=== PATIENT | male | born 1990 | race Caucasian/White ===

== ENCOUNTER 2018-12-23 03:16 | Emergency (ER) | payer OTHER, SELFPAY ==
[2018-12-23 03:20] VITALS: BP 148/97; PULSE 104; RESP 18; TEMP 37.2; O2SAT 98; BMI 25.1
--- NOTE | 2018-12-23 03:28 | ED.ABDPAIN ---
HPI - Abdominal Pain General Chief Complaint: Abdominal Pain Stated Complaint: abdominal pain, fever Time Seen by Provider: 12/23/18 03:28 Source: patient Mode of arrival: ambulatory Limitations: no limitations History of Present Illness HPI narrative: Patient is a 28-year-old male here for evaluation of epigastric pain. Patient states the symptoms started the day before yesterday. Describes it as sharp pain. No nausea or vomiting. Large amounts of diarrhea when the symptoms started. Was seen at a walk-in clinic yesterday where he was given a ?GI cocktail? which she states did nothing for his symptoms and was told to return the next day for a re-evaluation. He states that he had labs drawn at the time. He was told that everything was ?okay? with regard to the labs. He was instructed to come to the emergency department prior to this follow-up visit if his symptoms worsen or if he develops fevers. He states that he has felt fevers since then. Related Data Previous Rx's Medication Instructions Recorded sucralfate [Carafate] 10 ml PO QID 7 Days #280 ml 12/23/18 Allergies Allergy/AdvReac Type Severity Reaction Status Date / Time Sulfa (Sulfonamide Allergy Rash Verified 12/23/18 03:31 Antibiotics) Review of Systems Constitutional Reports fever(s) and Denies headache(s) ENT Ears, Nose, Mouth, and Throat: Denies headache(s) Cardiovascular Denies chest pain and Denies dyspnea Respiratory Denies dyspnea Gastrointestinal Gastrointestinal: Reports abdominal pain, Denies constipation and Reports diarrhea Genitourinary Denies dysuria Musculoskeletal Denies myalgias and Denies arthralgias Integumentary/Breasts Denies rash Neurologic Denies headache(s) Hematologic/Lymphatic Denies easy bleeding and Denies easy bruising [facility] Medical History Patient denies medical problems (Acute) Social History lives independently: Yes Social History lives independently: Yes Exam Initial Vital Signs Initial Vital Signs: Vital Signs Temperature 98.9 F 12/23/18 03:20 Pulse Rate 104 H 12/23/18 03:20 Respiratory Rate 18 12/23/18 03:20 Blood Pressure 148/97 H 12/23/18 03:20 Pulse Oximetry 98 12/23/18 03:20 Const General: cooperative, well developed, well groomed and No acute distress Orientation: alert, awake and oriented x3 HENMT Head: normal to inspection and normocephalic Resp Effort & Inspection: normal respiratory effort Auscultation: clear to auscultation bilaterally Cardio Rate: tachycardic Rhythm: regular rhythm GI Inspection: non-distended Palpation: soft, No firm and tender (Epigastric and right upper quadrant) Back/Spine/Pelvis Back: No CVA tenderness Skin Lesions: no lesions Rashes: no rashes Neuro General: alert, awake and oriented x3 Cognition: normal cognition Speech: speech normal Motor: muscle tone normal throughout Sensory Exam: no sensory deficits noted Extrem General: normal to inspection and capillary refill normal Psych Appearance: grossly normal and well kempt Course Orders Ordered: ED Orders 12/23/18 03:33 US abdomen limited Stat 12/23/18 03:40 Complete Blood Count AUTO DIFF Stat Comprehensive Metabolic Panel Stat Lipase Stat 12/23/18 04:51 CT abdomen pelvis w con Stat Discontinued Medications Sodium Chloride (Normal Saline 0.9%) 1,000 mls @ 1,000 mls/hr IV BOLUS ONE Stop: 12/23/18 05:50 Last Admin: 12/23/18 05:09 Dose: 1,000 mls/hr Vital Signs - 8 hr 12/23/18 03:20 12/23/18 04:30 12/23/18 05:11 Temperature 98.9 F Pulse Rate 104 H 89 74 Respiratory Rate 18 14 14 Blood Pressure 148/97 H Blood Pressure [Left Arm] 110/60 149/82 H Pulse Oximetry 98 99 100 MDM - Abdominal Pain Lab Data Attestation: I reviewed the patient's lab results. Result diagrams: 12/23/18 03:40 12/23/18 03:40 Lab Results 12/23/18 12/23/18 Range/Units 03:40 03:40 WBC 9.3 (4.5-11.0) X10^3/uL RBC 5.42 (4.5-5.9) X10^6/uL Hgb 17.1 (13.5-17.5) g/dL Hct 47.6 (41-53) % MCV 87.8 (80-100) fL MCH 31.5 (26-34) PG MCHC 35.9 (30-36) % RDW 12.2 (11.6-14.8) % Plt Count 209 (150-400) X10^3/uL Neut % (Auto) 71.9 (50-75) % Lymph % (Auto) 14.6 L (25-40) % Kay % (Auto) 12.9 (3-14) % Eos % (Auto) 0.2 L (2-4) % Baso % (Auto) 0.4 (0-2) % Neut # (Auto) 6700 (6493-1980) /uL Lymph # (Auto) 1400 (0268-2748) /uL Kay # (Auto) 1200 H (0-900) /uL Eos # (Auto) 0 (0-450) /uL Baso # (Auto) 0 (0-100) /uL Sodium 140 (137-145) mmol/L Potassium 3.6 (3.4-5.1) mmol/L Chloride 100 (98-107) mmol/L Carbon Dioxide 27 (22-32) mmol/L BUN 10 (9-20) mg/dL Creatinine 0.90 (0.66-1.25) mg/dL Estimated GFR > 60.0 (>60) mL/min BUN/Creatinine Ratio 11.1 (6-22) Glucose 109 H (70-100) mg/dL Calcium 9.3 (8.4-10.2) mg/dL Total Bilirubin 0.8 (0.2-1.3) mg/dL AST 28 (17-59) IU/L ALT 41 (21-72) IU/L Alkaline Phosphatase 77 (38-126) U/L Total Protein 7.7 (6.3-8.2) g/dL Albumin 4.6 (3.5-5.0) g/dL Globulin 3.1 (1.7-4.1) g/dL Albumin/Globulin Ratio 1.5 (1.0-2.8) Lipase 97 (23-300) U/L Imaging Data US - abdomen: Radiologist's impression: Normal limited abdominal ultrasound without sonographic findings of acute cholecystitis CT scan - abdomen: Radiologist's impression: No evidence of colitis, diverticulitis, bowel obstruction, obstructive uropathy, or acute appendicitis. Few prominent subcentimeter retroperitoneal lymph nodes, likely reactive. Small umbilical hernia containing fat. Hepatic cyst. MDM Narrative Medical decision making narrative: The patient refused the offer for pain medication and nausea medicine here in the emergency department. Labs are relatively unremarkable. Right upper quadrant ultrasound is negative. CT scan of the abdomen is unremarkable as well. Patient has not had diarrhea in the past 24 hours because he states that he has not eaten anything in order to have diarrhea. There is no infectious etiology found. No surgical etiology found. Patient seemed to be upset about the lack of a definitive diagnosis however no surgical consultation is needed. No antibiotics needed. Will send home with prescription for Carafate to see if this does not improve his symptoms. He was instructed that if he gets worsening pain or his pain changes or any new symptoms that he needs to return to the emergency department for further evaluation. He was also given the phone number for the health resources coordinator in order to help him establish primary provider. Discharge Plan Departure Patient Disposition: Home Clinical Impression: Abdominal pain Qualifiers: Abdominal location: epigastric Qualified Code(s): R10.13 - Epigastric pain Instructions: DI for Abdominal Pain-Adult Activity Restrictions/Additional Instructions: Unfortunately no definitive diagnosis was made in the workup today however the ultrasound the lab work and the CT scan does not show any signs of surgical issues or infectious issues requiring antibiotics. At I do recommend that we start you on Carafate for the next couple days like we discussed. Take this prescription as directed. I would also recommend you contact the health natural resource manager here at the hospital with 360 help with establishing a primary provider. Return to the emergency department for any new or worsening symptoms Prescriptions: New sucralfate [Carafate] 100 mg/mL suspension 10 ml PO QID 7 Days Qty: 280 RF: 0
--- NOTE | 2018-12-23 03:33 | DI.US.S_ITS ---
PROCEDURE: US ABDOMEN LIMITED INDICATIONS: RUQ US eval for GB pathology TECHNIQUE: Real-time focused scanning was performed of the abdomen, with image documentation. COMPARISON: CT scanning same day.. FINDINGS: The study is targeted to the gallbladder for gallstones or acute cholecystitis evaluation. IMPRESSION: Normal gallbladder. Dictated by: Reece Lorenz M.D. on 12/23/2018 at 8:11 Approved by: Reece Lorenz M.D. on 12/23/2018 at 8:12
[2018-12-23 03:53] LABS: Add Manual Diff / Slide Review NO; Basophils Absolute Auto 0 /uL (0-100); Basophils Percent Auto 0.4 % (0-2); Eosinophils Absolute Auto 0 /uL (0-450); Eosinophils Percent Auto 0.2 % (2-4); Hematocrit 47.6 % (41-53); Hemoglobin 17.1 g/dL (13.5-17.5); Lymphocytes Absolute Auto 1400 /uL (1100-4500); Lymphocytes Percent Auto 14.6 % (25-40); Mean Corpuscular HGB Conc 35.9 % (30-36); Mean Corpuscular Hemoglobin 31.5 PG (26-34); Mean Corpuscular Volume 87.8 fL (80-100); Monocytes Absolute Auto 1200 /uL (0-900); Monocytes Percent Auto 12.9 % (3-14); Neutrophils Absolute Auto 6700 /uL (1500-7000); Neutrophils Percent Auto 71.9 % (50-75); Platelet Count 209 X10^3/uL (150-400); Red Blood Cell Count 5.42 X10^6/uL (4.5-5.9); Red Cell Distribution Width 12.2 % (11.6-14.8); White Blood Cell Count 9.3 X10^3/uL (4.5-11.0)
[2018-12-23 03:59] LABS: Alanine Aminotransferase 41 IU/L (21-72); Albumin 4.6 g/dL (3.5-5.0); Albumin Globulin Ratio 1.5 (1.0-2.8); Alkaline Phosphatase 77 U/L (38-126); Aspartate Aminotransferase 28 IU/L (17-59); BUN Creatinine Ratio 11.1 (6-22); Bilirubin Total 0.8 mg/dL (0.2-1.3); Blood Urea Nitrogen 10 mg/dL (9-20); Calcium 9.3 mg/dL (8.4-10.2); Carbon Dioxide 27 mmol/L (22-32); Chloride 100 mmol/L (98-107); Estimated Glomerular Filt Rate > 60.0 mL/min (>60); Globulin 3.1 g/dL (1.7-4.1); Glucose 109 mg/dL (70-100); HEMOLYSIS < 15 (0-50); Lipase 97 U/L (23-300); Potassium 3.6 mmol/L (3.4-5.1); Sodium 140 mmol/L (137-145); Total Protein 7.7 g/dL (6.3-8.2)
[2018-12-23 04:30] VITALS: BP 110/60; PULSE 89; RESP 14; O2SAT 99
--- NOTE | 2018-12-23 04:51 | DI.CT.S_ITS ---
PROCEDURE: CT ABDOMEN PELVIS W CON INDICATIONS: Epigastric abdominal pain TECHNIQUE: After the administration of oral and intravenous contrast, 5 mm thick sections acquired from the diaphragms to the symphysis. 5 mm thick coronal and sagittal reformats were performed. For radiation dose reduction, the following was used: automated exposure control, adjustment of mA and/or kV according to patient size. COMPARISON: None. FINDINGS: Image quality: Excellent. ABDOMEN: Lung bases: Lung bases are clear. Heart size is normal. Solid organs: Liver is normal in size and enhancement. There is a small hypodense lesion that is well-circumscribed on the periphery of the medial segment of the left hepatic lobe that measures 1.1 cm in diameter (image 24, series 2), likely representing a simple cyst. The common bile duct is nondilated. Gallbladder is normal in size without surrounding inflammation. Biliary system is non-dilated. Pancreas enhances normally. Spleen is normal in size and enhancement. No adrenal nodules. Kidneys are normal in size and enhancement, without hydronephrosis. Peritoneum and bowel: Mild prominence of the wall the stomach is likely exaggerated by incomplete distention. The small bowel loops are nondilated. The appendix is not definitely seen and may be surgically absent. Moderate residual stool is identified within the colon. There is no free fluid, loculated fluid collection or free air. The very small fat containing periumbilical hernia is present. Nodes and vessels: Multiple borderline prominent upper mediastinal lymph nodes are identified in without venkatesh lymphadenopathy evident. No mesenteric adenopathy is identified the largest retroperitoneal lymph node measures up to approximately 9 mm in short axis (image 35, series 2), which is located adjacent to the aorta just above the elbow and her mesenteric artery takeoff. Aorta and inferior vena cava are normal in caliber. Miscellaneous: No ventral hernias. PELVIS: Genitourinary: Bladder wall thickness is normal. No bladder calculi are present. The prostate is not enlarged. Miscellaneous: No inguinal hernias or adenopathy. No free fluid or loculated fluid collection is evident. There is no free air. Bones: No suspicious bony lesions. No vertebral body compression fractures. No significant degenerative changes are present. IMPRESSION: 1. No definite acute abnormality within the abdomen or pelvis. 2. Extensive borderline prominent retroperitoneal lymph nodes are of uncertain clinical significance or etiology. Please consider [address] of the abdomen and pelvis to reevaluate the lymph nodes for interval change and exclude a developing neoplastic process. 3. Probable constipation. No bowel obstruction. Note: The preliminary report provided by [facility] is concordant with the final report. Dictated by: Timmy Bay M.D. on 12/23/2018 at 9:32 Approved by: Timmy Bay M.D. on 12/23/2018 at 9:39
[2018-12-23] MEDS: SODIUM CHLORIDE 0.9% 1,000 ML 1000 ML IV (05:09)
[2018-12-23 05:11] VITALS: BP 149/82; PULSE 74; RESP 14; O2SAT 100
[2018-12-23 05:51] VITALS: BP 120/67; PULSE 90; RESP 14; O2SAT 100
== END 2018-12-23 06:00 | disposition home or self-care (01) ==
PROVIDERS: Emergency Provider Emergency Medicine
DX: R10.13 Epigastric pain (principal)
CPT/HCPCS: 36591; 74177; 76705; 80053; 83690; 85025; 96360; 99283; 99285; Q9967

== ENCOUNTER 2022-09-29 18:01 | Emergency (ER) | payer OTHER, SELFPAY ==
[2022-09-29 18:15] VITALS: BP 128/97; PULSE 78; RESP 20; TEMP 37.1; O2SAT 98; BMI 24.3
--- NOTE | 2022-09-29 18:33 | ED.SYNCOPE ---
HPI - Syncope General Chief Complaint: Syncope Stated Complaint: back pain s/p trampoline park injury Time Seen by Provider: 09/29/22 18:18 Source: patient Mode of arrival: Ambulatory Limitations: no limitations History of Present Illness HPI narrative: 32-year-old male nonsmoker with noncontributory medical history presents with significant other and a chief complaint of a trampoline injury earlier today in which she landed on his neck and posterior head and had a very brief syncopal episode lasting 3-5 seconds with no vomiting. He denies any blurred vision or trouble with speech. He denies any upper extremity numbness, tingling or weakness. He denies any neck pain. He states that he went home and laid down for a few hours and got out of bed and walk to the toilet, while urinating felt dizzy, weak and lightheaded and had a syncopal episode. He was able to call out to his for help prior to having an episode. He did not strike his head as a consequence of this event. Upon standing after this syncopal episode he took a few more steps and had a 3rd syncopal episode. He denies nausea, vomiting or diarrhea. Denies any chest pain or shortness of breath. He denies any numbness, tingling or weakness but states that he has severe pain in his lower back. He denies radiation of this pain. He denies any loss of control of bowel or bladder. He states it hurts to move his right leg but he is not weak. Related Data Previous Rx's Medication Instructions Recorded cyclobenzaprine 10 mg tablet 10 mg PO TID PRN muscle spasm #14 09/29/22 tabs hydrocodone 5 mg-acetaminophen 325 1 tab PO Q4-6H PRN pain #10 tabs 09/29/22 mg tablet lidocaine 5 % topical patch 1 patch topical DAILY #15 ea 09/29/22 (Lidoderm) Allergies Allergy/AdvReac Type Severity Reaction Status Date / Time Sulfa (Sulfonamide Allergy Rash Verified 09/29/22 18:22 Antibiotics) Review of Systems Review of Systems Narrative: GENERAL: Denies chills, fatigue, malaise, fever, sweats. HEENT: Denies sinus pain, ear pain, sore throat, difficulty swallowing, dizziness. RESPIRATORY: Denies dyspnea, cough, wheezing, hemoptysis, sputum. CARDIOVASCULAR: see HPI GASTROINTESTINAL: Denies nausea, vomiting, abdominal pain, diarrhea, constipation, melena. : Denies dysuria, frequency, incontinence, hematuria, urinary retention. MUSCULOSKELETAL: denies weakness, joint pain, or bony pain SKIN: Denies rash, skin lesions, or other NEUROLOGIC: see HPI PSYCHIATRIC: No concerning psychosocial issues. 12 point review of systems is negative except for those stated above Patient History Medical History Patient denies medical problems Social History lives independently: Yes Smoking Status: Never smoker Smoking Status: Never smoker alcohol intake frequency: 0-2 drinks per day Substance Use Type: does not use Exam Narrative Exam Narrative: GENERAL: [32] year old patient appears stated age. Well-developed patient, in mild distress. HEAD: Atraumatic. Normocephalic. EYES: Pupils equal round and reactive. Extraocular motions intact. No scleral icterus. No injection or drainage. ENT: Nose without bleeding, purulent drainage. Throat without erythema, tonsillar hypertrophy or exudate. Airway patent. NECK: Trachea midline. Non tender CARDIOVASCULAR: Regular rate and rhythm without murmurs, gallops, or rubs. RESPIRATORY: Clear to auscultation. Breath sounds equal bilaterally. No wheezes, rales, or rhonchi. GASTROINTESTINAL: Abdomen soft, non-tender, nondistended. EXTREMITIES: No edema or joint tenderness. BACK: wharf tender helper but free of any obvious external abnormalities. Patient exam notes decreased range of motion and muscle spasm, but no CVA tenderness, or vertebral point tenderness. There are no symptoms of cauda equina such as saddle anesthesia, and decreased reflexes, decreased sensation or strength. NEURO: AOx3. SKIN: No rash or erythema of visible areas Initial Vital Signs Initial Vital Signs: Vital Signs Temperature 98.8 F 09/29/22 18:15 Pulse Rate 78 09/29/22 18:15 Respiratory Rate 20 09/29/22 18:15 Blood Pressure 128/97 H 09/29/22 18:15 Pulse Oximetry 98 09/29/22 18:15 Oxygen Delivery Method Room Air 09/29/22 18:15 Course Orders Ordered: Discontinued Medications Hydrocodone Bitart/Acetaminophen (Hydrocodone/Acet 5/325 Prepack) 1 bottle MISC SEEINSTR ONE Stop: 09/29/22 20:38 Last Admin: 09/29/22 20:51 Dose: 1 bottle Documented By: YOLIS Cyclobenzaprine HCl (Cyclobenzaprine 10 Mg Prepack) 1 bottle MISC SEEINSTR ONE Stop: 09/29/22 20:38 Last Admin: 09/29/22 20:51 Dose: 1 bottle Documented By: YOLIS Sodium Chloride (Normal Saline 0.9%) 1,000 mls @ 1,000 mls/hr IV BOLUS ONE Stop: 09/29/22 19:47 Last Infusion: 09/29/22 19:59 Dose: 0 mls/hr Documented By: Admin: 09/29/22 19:19 Dose: 1,000 mls/hr Documented By: YOLIS Lidocaine (Lidocaine Patch 1 Each Adh..Patch) 1 each TOP NOW ONE Stop: 09/29/22 20:38 Last Admin: 09/29/22 20:50 Dose: 1 each Documented By: YOLIS Consultations Consultation #1: Discussed with on-call orthopedist, she is reviewed the imaging, stable fracture though she does suggest that he would benefit from a brace and recommends that he call the office tomorrow to be seen close follow-up to arrange this. Vital Signs Vital signs: Vital Signs - 8 hr 09/29/22 18:15 Temperature 98.8 F Pulse Rate 78 Respiratory Rate 20 Blood Pressure 128/97 H Pulse Oximetry 98 Oxygen Delivery Method Room Air MDM - Syncope Lab Data 09/29/22 19:15 09/29/22 19:15 Labs: Lab Results 09/29/22 09/29/22 Range/Units 19:15 19:15 WBC 8.5 (4.5-11.0) X10^3/uL RBC 5.07 (4.5-5.9) X10^6/uL Hgb 15.8 (13.5-17.5) g/dL Hct 45.1 (41-53) % MCV 89.1 (80-100) fL MCH 31.2 (26-34) PG MCHC 35.1 (30-36) % RDW 12.5 (11.6-14.8) % Plt Count 259 (150-400) X10^3/uL Neut % (Auto) 75.3 H (50-75) % Lymph % (Auto) 17.6 L (25-40) % Hayes % (Auto) 6.5 (3-14) % Eos % (Auto) 0.2 L (2-4) % Baso % (Auto) 0.4 (0-2) % Neut # (Auto) 6400 (0391-0913) /uL Lymph # (Auto) 1500 (3972-0740) /uL Hayes # (Auto) 600 (0-900) /uL Eos # (Auto) 0 (0-450) /uL Baso # (Auto) 0 (0-100) /uL Sodium 138 (137-145) mmol/L Potassium 3.9 (3.4-5.1) mmol/L Chloride 100 (98-107) mmol/L Carbon Dioxide 28 (22-32) mmol/L BUN 18 (9-20) mg/dL Creatinine 0.77 (0.66-1.25) mg/dL Estimated GFR > 60 (>60) mL/min BUN/Creatinine Ratio 23.4 H (6-22) Glucose 95 (70-100) mg/dL Calcium 9.3 (8.4-10.2) mg/dL Magnesium 2.2 (1.6-2.3) mg/dL Total Bilirubin 0.7 (0.2-1.3) mg/dL AST 30 (17-59) IU/L ALT 20 (<50) IU/L Alkaline Phosphatase 65 (38-126) U/L Total Creatine Kinase 105 (55-170) U/L CK-MB (CK-2) 0.56 (<2.37) ng/mL CK-MB (CK-2) Rel Index 0.5 L (1.5-5.0) % Troponin I < 0.012 (0.01-0.034) ng/mL Total Protein 8.1 (6.3-8.2) g/dL Albumin 4.8 (3.5-5.0) g/dL Globulin 3.3 (1.7-4.1) g/dL Albumin/Globulin Ratio 1.5 (1.0-2.8) MDM Narrative Medical decision making narrative: [32] year old patient presents with back pain after traumatic injury with syncope Multiple etiologies for patient's symptoms considered including, but not limited to: [Lumbar fracture, radiculopathy versus other. Syncope considered head injury versus orthostatic versus vasovagal versus other] Prior Charts reviewed in our EMR Primary Historian: patient Labs reviewed and interpreted by myself: No significant abnormal findings Imaging reviewed: Head and C-spine without abnormalities. Lumbar notes L1 compression fracture with 25% height loss Consultations: Discussed with on-call orthopedist, see details above Patient's symptoms improved over duration of stay with above-stated therapies. Findings and discharge diagnosis discussed with patient/family followed by verbalization of understanding Return precautions discussed with patient/family whom verbalize understanding of diagnosis and plan Discharge Plan Departure Patient Disposition: Home Clinical Impression: Vasovagal syncope, Closed lumbar vertebral fracture Instructions: DI for Syncope in Adults (Fainting), DI for Vertebral Fracture Activity Restrictions/Additional Instructions: *You have been diagnosed with [L1 compression fracture and syncopal episode. As we discussed your history and physical are otherwise reassuring, labs demonstrate no significant abnormality. The CT scan of your head and neck had no abnormality in the CT of your lumbar spine showed the fracture as we discussed.] *What to do: *Please continue to take your regular medications as directed. [x ] New medication prescriptions sent to your pharmacy: [[facility] in [place] ] [ ] New medication written as a paper prescription [ ] No new medications given *Please follow up with Dr. Luo of [facility]. Please call the office at the number listed below tomorrow morning and let them know you were seen in the Emergency Department and that we ask that you be seen in follow up. Dr. Luo looked at your CT and thinks you would benefit from a brace, which they can help you get set up with. *Return to Emergency Department if you should have any new, worsening or concerning symptoms, such as [fever greater than 101 F, shaking chills, worsening pain, persistent vomiting or other bothersome symptoms] You have been prescribed a short course of narcotic medications. These are potentially dangerous and addictive medications that should be used carefully. While on these medications you cannot drive or operate heavy machinery. Additionally, you cannot sign legal documents or perform any duties such as this. 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 Please understand that we cannot provide further refills of narcotics or controlled substances through the ED and your pain management will need to be through your Primary Care Provider Prescriptions: New cyclobenzaprine 10 mg tablet 10 mg PO TID PRN (Reason: muscle spasm) Qty: 14 0RF hydrocodone-acetaminophen 5-325 mg tablet 1 tab PO Q4-6H PRN (Reason: pain) Qty: 10 0RF lidocaine [Lidoderm] 5 % adhesive patch,medicated 1 patch TOP DAILY Qty: 15 0RF Rx Instructions: leave on most painful area for 12 hrs Referrals: Artur العراقي ARNP [Primary Care Provider] - Corry Luo MD [Physician] - Stand Alone Forms: Patient Portal/API
--- NOTE | 2022-09-29 18:42 | DI.CT.S_ITS ---
PROCEDURE: CT HEAD/BRAIN WO CON INDICATIONS: fall, head injury, syncope x3 TECHNIQUE: Noncontrast 4.5 mm thick angled axial sections acquired from the foramen magnum to the vertex, with coronal and sagittal reformats. For radiation dose reduction, the following was used: automated exposure control, adjustment of mA and/or kV according to patient size. COMPARISON: [facility], CT, CT LUMBAR SPINE WO CON, 09/29/2022, 18:50. [facility], CT, CT CERVICAL SPINE WO CON, 09/29/2022, 18:50. FINDINGS: Image quality: Excellent. CSF spaces: Basal cisterns are patent. No extra-axial fluid collections. Ventricles are normal in size and shape. Brain: No midline shift. No intracranial masses or hemorrhage. Stevens-white matter interface is normal. Skull and face: Calvarium and visualized facial bones are intact, without suspicious lesions. Sinuses: Visualized sinuses and mastoids are clear. IMPRESSION: No acute intracranial hemorrhage is seen. No acute intracranial process is seen. Dictated by: Adria Curiel M.D. on 09/29/2022 at 18:22 Approved by: Adria Curiel M.D. on 09/29/2022 at 18:23
--- NOTE | 2022-09-29 18:42 | DI.CT.S_ITS ---
PROCEDURE: CT LUMBAR SPINE WO CON INDICATIONS: trampoline injury, severe midline lumbar pain TECHNIQUE: Noncontrast 3 mm thick sections acquired from the T12 level to the sacrum. Sagittal and coronal reformats were constructed. For radiation dose reduction, the following was used: automated exposure control. COMPARISON: [facility], CT, CT ABDOMEN PELVIS W CON, 12/23/2018, 4:57. [facility], CT, CT CERVICAL SPINE WO CON, 09/29/2022, 18:50. [facility], CT, CT HEAD/BRAIN WO CON, 09/29/2022, 18:50. FINDINGS: Image quality: Excellent. Bones: There is a fracture seen of the superior endplate of L1, with 35% loss of height centrally. There is 1-2 mm posterior displacement fracture fragments seen superiorly. No additional fractures are detected. There is normal bony alignment. No suspicious lytic or blastic bony lesions. No pars defects. No significant underlying degenerative changes are seen. Soft tissues: No retroperitoneal masses or hematomas. Visualized aorta is normal in caliber. IMPRESSION: L1 compression deformity, with an acute appearance. This is new compared to 2018. There is 35% loss of height centrally and 1-2 mm posterior displacement of fracture fragments superiorly. Dictated by: Adria Curiel M.D. on 09/29/2022 at 18:25 Approved by: Adria Curiel M.D. on 09/29/2022 at 18:27
--- NOTE | 2022-09-29 18:42 | DI.CT.S_ITS ---
PROCEDURE: CT CERVICAL SPINE WO CON INDICATIONS: fall, head injury, syncope, distracting injury TECHNIQUE: Noncontrast 3 mm thick sections acquired from the skull base to the T4 level. Sagittal and coronal reformats were then constructed. For radiation dose reduction, the following was used: automated exposure control, adjustment of mA and/or kV according to patient size. COMPARISON: [facility], CT, CT LUMBAR SPINE WO CON, 09/29/2022, 18:50. [facility], CT, CT HEAD/BRAIN WO CON, 09/29/2022, 18:50. FINDINGS: Image quality: This examination is somewhat limited by quantum mottle artifact. Bones: No fractures or dislocations. Visualized superior ribs are intact. Soft tissues: Prevertebral soft tissues are normal in thickness. No paravertebral hematomas. No apical pneumothoraces. IMPRESSION: Negative for fracture. Dictated by: Adria Curiel M.D. on 09/29/2022 at 18:24 Approved by: Adria Curiel M.D. on 09/29/2022 at 18:24
[2022-09-29] MEDS: SODIUM CHLORIDE 0.9% 1,000 ML 1000 ML IV (19:19)
[2022-09-29 19:34] LABS: Add Manual Diff / Slide Review NO; Basophils Absolute Auto 0 /uL (0-100); Basophils Percent Auto 0.4 % (0-2); Eosinophils Absolute Auto 0 /uL (0-450); Eosinophils Percent Auto 0.2 % (2-4); Hematocrit 45.1 % (41-53); Hemoglobin 15.8 g/dL (13.5-17.5); Lymphocytes Absolute Auto 1500 /uL (1100-4500); Lymphocytes Percent Auto 17.6 % (25-40); Mean Corpuscular HGB Conc 35.1 % (30-36); Mean Corpuscular Hemoglobin 31.2 PG (26-34); Mean Corpuscular Volume 89.1 fL (80-100); Monocytes Absolute Auto 600 /uL (0-900); Monocytes Percent Auto 6.5 % (3-14); Neutrophils Absolute Auto 6400 /uL (1500-7000); Neutrophils Percent Auto 75.3 % (50-75); Platelet Count 259 X10^3/uL (150-400); Red Blood Cell Count 5.07 X10^6/uL (4.5-5.9); Red Cell Distribution Width 12.5 % (11.6-14.8); White Blood Cell Count 8.5 X10^3/uL (4.5-11.0)
[2022-09-29 19:46] LABS: Alanine Aminotransferase 20 IU/L (<50); Albumin 4.8 g/dL (3.5-5.0); Albumin Globulin Ratio 1.5 (1.0-2.8); Alkaline Phosphatase 65 U/L (38-126); Aspartate Aminotransferase 30 IU/L (17-59); BUN Creatinine Ratio 23.4 (6-22); Bilirubin Total 0.7 mg/dL (0.2-1.3); Blood Urea Nitrogen 18 mg/dL (9-20); Calcium 9.3 mg/dL (8.4-10.2); Carbon Dioxide 28 mmol/L (22-32); Chloride 100 mmol/L (98-107); Creatine Kinase 105 U/L (55-170); Estimated Glomerular Filt Rate > 60 mL/min (>60); Globulin 3.3 g/dL (1.7-4.1); Glucose 95 mg/dL (70-100); HEMOLYSIS < 15 (0-50); Magnesium 2.2 mg/dL (1.6-2.3); Potassium 3.9 mmol/L (3.4-5.1); Sodium 138 mmol/L (137-145); Total Protein 8.1 g/dL (6.3-8.2)
[2022-09-29 19:57] LABS: Troponin I < 0.012 ng/mL (0.01-0.034)
[2022-09-29 20:02] LABS: CKMB % Relative Index 0.5 % (1.5-5.0); Creatine Kinase MB 0.56 ng/mL (<2.37)
[2022-09-29] MEDS: LIDOCAINE PATCH 1 EACH ADH..PATCH TOP (20:50)
[2022-09-29] MEDS: CYCLOBENZAPRINE 10 MG PREPACK 1 BOTTLE MISC (20:51)
[2022-09-29] MEDS: HYDROCODONE/ACET 5/325 PREPACK 1 BOTTLE MISC (20:51)
== END 2022-09-29 21:07 | disposition home or self-care (01) ==
PROVIDERS: Emergency Provider Emergency Medicine; PCP Registered Nurse
DX: S32.019A Unspecified fracture of first lumbar vertebra, initial encounter for closed fracture (principal); S09.90XA Unspecified injury of head, initial encounter; R55 Syncope and collapse; R07.9 Chest pain, unspecified; Y93.39 Activity, other involving climbing, rappelling and jumping off
CPT/HCPCS: 36415; 70450; 72125; 72131; 80053; 82550; 82553; 83735; 84484; 85025; 93005; 99284